=== PATIENT | female | born 1975 | race African-American/Black ===

== ENCOUNTER 2023-03-23 06:40 | Day surgery (SDC) | payer OTHER ==
[~2023-03-23] VITALS: Ht 165.1 cm; Wt 81.6 kg
[~2023-03-23 06:40] MED LIST: AMITRIPTYLINE H25 MG PO; AMOX/K CLAV875 M1 PO; ANUCORT-HC25 MG RE; BENZONATATE150 MG; COLACE100 MG PO; FLEXERIL5 M1 PO; FLUARIX QUADRIV1 INJ IM; MEDROL DOSEPAK4 MG; NAPROSYN375 MG PO; NAPROSYN500 MG PO; NO MEDS; PREDNISONE10 MG PO; TIZANIDINE2 MG PO; TIZANIDINE4 MG PO
[2023-03-23 10:01] VITALS: BP 128/78
== END 2023-03-23 09:42 | disposition home or self-care (01) | DRG 951 ==
LOC: ENDO 06:40 → ORM 08:00 → ENDO 08:00 → ORM 08:45 → ENDO 09:42
PROVIDERS: ATTEND Surgery
PROC: 0DJD8ZZ Inspection of Lower Intestinal Tract, Via Natural or Artificial Opening Endoscopic (ICD-10-PCS; principal; 2023-03-23)
DX: Z12.11 Encounter for screening for malignant neoplasm of colon (principal); K64.8 Other hemorrhoids; Z80.0 Family history of malignant neoplasm of digestive organs